=== PATIENT | female | born 1975 | race Caucasian/White ===

== ENCOUNTER 2018-04-14 18:30 | Inpatient (IN) | payer MEDICARE ==
[2018-04-14] MEDS ORDERED: ACETAMINOPHEN 325 MG TAB PO (20:30)
[2018-04-14] MEDS ORDERED: MAGNESIUM HYDROXIDE 30ML CUP PO (20:30)
[2018-04-14] MEDS ORDERED: BISACODYL 10 MG SUPP PR (21:00)
[2018-04-14] MEDS ORDERED: LACTULOSE 30ML CUP PO (21:00)
[2018-04-14 22:20] LABS: ADD UMIC YES; UR ASCORBIC ACID 40 mg/dL (NEGATIVE); UR BILIRUBIN (Dip) NEGATIVE (NEGATIVE); UR BLOOD (Dip) NEGATIVE (NEGATIVE); UR CLARITY CLEAR (CLEAR); UR COLOR YELLOW (YELLOW); UR GLUCOSE (Dip) NEGATIVE (NEGATIVE); UR KETONES (Dip) NEGATIVE (NEGATIVE); UR LEUKOCYTE ESTERASE (Dip) TRACE Leu/ul (NEGATIVE); UR NITRITE (Dip) NEGATIVE (NEGATIVE); UR RBC 8 /HPF (0-5); UR SPECIFIC GRAVITY (Dip) 1.011 (1.003-1.030); UR TOTAL PROTEIN (Dip) NEGATIVE (NEGATIVE); UR UROBILINOGEN (Dip) NEGATIVE (NEGATIVE); UR WBC 2 /HPF (0-5)
[2018-04-14] MEDS: DOCUSATE SODIUM 100 MG CAP PO (22:43)
[2018-04-14] MEDS: SENNA TAB PO (22:44)
[2018-04-15] MEDS: METHOCARBAMOL 750 MG TAB PO ×5 (00:24→23:41)
[2018-04-15] MEDS: ACETAMINOPHEN 325 MG TAB PO ×5 (00:24→23:41)
[2018-04-15] MEDS: ASCORBIC ACID 250 MG TAB PO ×3 (00:25→20:01)
[2018-04-15] MEDS: PANTOPRAZOLE (EC) 40 MG TAB PO (06:28)
[2018-04-15 07:10] LABS: WHITE BLOOD COUNT 11.5 10^3/ul (4.8-10.8)
[2018-04-15 07:10] LABS: ABNORMAL IP MESSAGE 1; HEMOGLOBIN 7.4 g/dl (12.0-16.0); MEAN CORPUSCULAR HEMOGLOBIN 29.7 pg (29.0-33.0); MEAN CORPUSCULAR HGB CONC 32.2 g/dl (32.0-37.0); MEAN CORPUSCULAR VOLUME 92.4 fl (82.0-101.0); MEAN PLATELET VOLUME 11.3 fl (7.4-10.4); NUCLEATED RED BLOOD CELLS% 55.7 /100WBC (0.0-0.0); PLATELET COUNT 297 10^3/UL (140-415); RED BLOOD COUNT 2.49 10^6/ul (4.20-5.40); RED CELL DISTRIBUTION WIDTH 15.6 % (11.5-14.5)
[2018-04-15 07:21] LABS: ADD MAN DIFF? YES; POSITIVE DIFF @See below
[2018-04-15] MEDS: METHADONE 10 MG TAB PO (07:51)
[2018-04-15 07:53] LABS: ALANINE AMINOTRANSFERASE 54 IU/L (13-69); ALBUMIN 3.6 g/dl (3.3-4.9); ALBUMIN/GLOBULIN RATIO 1.09; ALKALINE PHOSPHATASE 261 IU/L (42-121); ANION GAP 11 (8-16); ASPARTATE AMINO TRANSFERASE 55 IU/L (15-46); BILIRUBIN,INDIRECT 0.7 mg/dl (0-1.1); BILIRUBIN,TOTAL 0.7 mg/dl (0.2-1.3); BLOOD UREA NITROGEN 30 mg/dl (7-20); CALCIUM 9.6 mg/dl (8.4-10.2); CARBON DIOXIDE 23 mmol/L (21-31); CHLORIDE 112 mmol/L (97-110); CREATININE 0.96 mg/dl (0.44-1.00); GLUCOSE 90 mg/dl (70-220); POTASSIUM 4.4 mmol/L (3.5-5.1); SODIUM 142 mmol/L (135-144); TOTAL PROTEIN 6.9 g/dl (6.1-8.1)
[2018-04-15] MEDS: CYANOCOBALAMIN 500 MCG TAB PO ×2 (09:00→12:50)
[2018-04-15] MEDS ORDERED: METHADONE (1 MG/ML 5 ML PO UD SYG) PO (09:00)
[2018-04-15 09:14] LABS: BAND NEUTROPHILS #M 0.1 10^3/ul (0.0-0.6); BAND NEUTROPHILS % (M) 1 % (0-4); BASOPHIL #M 0.1 10^3/ul (0.0-0.0); BASOPHILS % (M) 1 % (0-2); BURR CELLS 1+ (0-0); EOSINOPHILS % (M) 12 % (0-7); ERYTHROBLAST% (NRBC) (M) 110 % (0-0); GIANT THROMBO% (M) 2 % (0-0); HYPOCHROMASIA 2+ (0-0); LYMPHOCYTES #M 3.2 10^3/ul (0.8-2.9); LYMPHOCYTES % (M) 28 % (15-51); MONOCYTE #M 0.8 10^3/ul (0.3-0.9); MONOCYTES % (M) 7 % (0-11); PLATELET ESTIMATE NORMAL; REACTIVE LYMPHOCYTES #M 0.1 10^3/ul (0.0-0.0); REACTIVE LYMPHOCYTES% (M) 1 % (0-0); SEG NEUT #M 5.8 10^3/ul (1.6-7.5); SEGMENTED NEUTROPHILS (M) % 50 % (39-77); SMUDGE%M 6 % (0-0); TARGET CELLS 1+ (0-0)
[2018-04-15] MEDS: MUPIROCIN 2% 22 GM OINT TOP (09:47)
[2018-04-15] MEDS: BALSAM PERU/CASTOR OIL 60 GM TUBE TOP ×2 (09:47→20:05)
[2018-04-15] MEDS: DOCUSATE SODIUM 100 MG CAP PO ×2 (09:48→20:01)
[2018-04-15] MEDS: COLCHICINE 0.6 MG TAB PO (09:48)
[2018-04-15] MEDS: LACTOBACILLUS RHAMNOSUS CAP PO (09:48)
[2018-04-15] MEDS: ALLOPURINOL 100 MG TAB PO (09:48)
[2018-04-15] MEDS: MULTIVITAMINS/MINERALS TAB PO (09:48)
[2018-04-15] MEDS: ENOXAPARIN 40 MG/0.4 ML SYG SC (09:49)
[2018-04-15] MEDS: HYDROmorphONE 2 MG TAB PO ×2 (15:01→20:02)
[2018-04-15] MEDS: SENNA TAB PO (20:01)
[2018-04-16] MEDS: PANTOPRAZOLE (EC) 40 MG TAB PO (06:07)
[2018-04-16] MEDS: METHOCARBAMOL 750 MG TAB PO ×3 (06:07→17:37)
[2018-04-16] MEDS: ACETAMINOPHEN 325 MG TAB PO ×3 (06:08→17:38)
[2018-04-16] MEDS: METHADONE 10 MG TAB PO (06:32)
[2018-04-16] MEDS: BALSAM PERU/CASTOR OIL 60 GM TUBE TOP (08:45)
[2018-04-16] MEDS: ENOXAPARIN 40 MG/0.4 ML SYG SC (08:47)
[2018-04-16] MEDS: MUPIROCIN 2% 22 GM OINT TOP (08:47)
[2018-04-16] MEDS: DOCUSATE SODIUM 100 MG CAP PO ×2 (08:47→20:59)
[2018-04-16] MEDS: LACTOBACILLUS RHAMNOSUS CAP PO (08:48)
[2018-04-16] MEDS: ASCORBIC ACID 250 MG TAB PO ×2 (08:48→20:59)
[2018-04-16] MEDS: COLCHICINE 0.6 MG TAB PO (08:48)
[2018-04-16] MEDS: CYANOCOBALAMIN 500 MCG TAB PO (08:48)
[2018-04-16] MEDS: MULTIVITAMINS/MINERALS TAB PO (08:48)
[2018-04-16] MEDS: ALLOPURINOL 100 MG TAB PO (08:49)
[2018-04-16 08:55] LABS: ADD MAN DIFF? NO
[2018-04-16 08:57] LABS: WHITE BLOOD COUNT 13.8 10^3/ul (4.8-10.8)
[2018-04-16 08:57] LABS: ABNORMAL IP MESSAGE 1; BASOPHIL # 0.1 10^3/ul (0.0-0.1); BASOPHILS % 0.6 % (0.0-2.0); EOSINOPHILS # 0.5 10^3/ul (0.0-0.5); EOSINOPHILS % 3.5 % (0.0-7.0); LYMPHOCYTES # 2.9 10^3/ul (0.8-2.9); LYMPHOCYTES % 21.1 % (15.0-51.0); MEAN CORPUSCULAR HEMOGLOBIN 29.7 pg (29.0-33.0); MEAN CORPUSCULAR VOLUME 92.9 fl (82.0-101.0); MONOCYTE # 1.7 10^3/ul (0.3-0.9); MONOCYTES % 12.5 % (0.0-11.0); NEUTROPHIL # 8.6 10^3/ul (1.6-7.5); NEUTROPHILS % 61.9 % (39.0-77.0); NUCLEATED RED BLOOD CELLS # 8.6 10^3/ul (0.0-0.0); NUCLEATED RED BLOOD CELLS% 61.9 /100WBC (0.0-0.0); PLATELET COUNT 340 10^3/UL (140-415); RED BLOOD COUNT 2.69 10^6/ul (4.20-5.40); RED CELL DISTRIBUTION WIDTH 15.4 % (11.5-14.5)
[2018-04-16 08:58] LABS: POSITIVE DIFF @See below
[2018-04-16 09:13] LABS: ANION GAP 18 (8-16); BLOOD UREA NITROGEN 28 mg/dl (7-20); CALCIUM 9.9 mg/dl (8.4-10.2); CARBON DIOXIDE 26 mmol/L (21-31); CHLORIDE 104 mmol/L (97-110); CREATININE 0.98 mg/dl (0.44-1.00); GLUCOSE 87 mg/dl (70-220); IRON 110 ug/dl (35-150); POTASSIUM 4.2 mmol/L (3.5-5.1); SODIUM 144 mmol/L (135-144)
[2018-04-16 09:22] LABS: % IRON SATURATION 43 % SAT (22-52); TOTAL IRON BINDING CAPACITY 253 ug/dl (241-421)
[2018-04-16] MEDS: HYDROmorphONE 2 MG TAB PO ×2 (09:47→13:55)
[2018-04-16 10:08] LABS: FERRITIN > 1000.0 ng/ml (6.2-137.0)
[2018-04-16] MEDS: SENNA TAB PO (20:59)
[2018-04-17] MEDS: METHOCARBAMOL 750 MG TAB PO ×4 (00:14→18:13)
[2018-04-17] MEDS: ACETAMINOPHEN 325 MG TAB PO ×4 (00:15→18:13)
[2018-04-17] MEDS: PANTOPRAZOLE (EC) 40 MG TAB PO (06:02)
[2018-04-17 07:11] LABS: ADD MAN DIFF? NO
[2018-04-17 07:14] LABS: WHITE BLOOD COUNT 12.4 10^3/ul (4.8-10.8)
[2018-04-17 07:14] LABS: ABNORMAL IP MESSAGE 1; BASOPHIL # 0.1 10^3/ul (0.0-0.1); BASOPHILS % 0.6 % (0.0-2.0); EOSINOPHILS # 0.6 10^3/ul (0.0-0.5); EOSINOPHILS % 4.8 % (0.0-7.0); HEMATOCRIT 22.1 % (37.0-47.0); HEMOGLOBIN 7.3 g/dl (12.0-16.0); LYMPHOCYTES # 2.9 10^3/ul (0.8-2.9); LYMPHOCYTES % 23.4 % (15.0-51.0); MEAN CORPUSCULAR VOLUME 90.9 fl (82.0-101.0); MEAN PLATELET VOLUME 10.9 fl (7.4-10.4); MONOCYTE # 2.1 10^3/ul (0.3-0.9); MONOCYTES % 16.7 % (0.0-11.0); NEUTROPHIL # 6.7 10^3/ul (1.6-7.5); NEUTROPHILS % 54.1 % (39.0-77.0); NUCLEATED RED BLOOD CELLS # 9.8 10^3/ul (0.0-0.0); NUCLEATED RED BLOOD CELLS% 79.2 /100WBC (0.0-0.0); PLATELET COUNT 303 10^3/UL (140-415); RED BLOOD COUNT 2.43 10^6/ul (4.20-5.40); RED CELL DISTRIBUTION WIDTH 15.3 % (11.5-14.5)
[2018-04-17 07:21] LABS: POSITIVE DIFF @See below
[2018-04-17] MEDS: METHADONE 10 MG TAB PO (07:36)
[2018-04-17 07:38] LABS: ANION GAP 11 (8-16); BLOOD UREA NITROGEN 27 mg/dl (7-20); CALCIUM 9.5 mg/dl (8.4-10.2); CARBON DIOXIDE 24 mmol/L (21-31); CHLORIDE 110 mmol/L (97-110); CREATININE 0.96 mg/dl (0.44-1.00); GLUCOSE 91 mg/dl (70-220); POTASSIUM 4.3 mmol/L (3.5-5.1); SODIUM 141 mmol/L (135-144)
[2018-04-17 07:56] LABS: PHOSPHORUS 5.2 mg/dl (2.5-4.9)
[2018-04-17] MEDS: MULTIVITAMINS/MINERALS TAB PO (08:57)
[2018-04-17] MEDS: ASCORBIC ACID 250 MG TAB PO ×2 (08:57→20:24)
[2018-04-17] MEDS: COLCHICINE 0.6 MG TAB PO (08:57)
[2018-04-17] MEDS: CYANOCOBALAMIN 500 MCG TAB PO (08:57)
[2018-04-17] MEDS: DOCUSATE SODIUM 100 MG CAP PO ×2 (08:58→20:25)
[2018-04-17] MEDS: LACTOBACILLUS RHAMNOSUS CAP PO (08:58)
[2018-04-17] MEDS: ALLOPURINOL 100 MG TAB PO (08:58)
[2018-04-17] MEDS: HYDROmorphONE 2 MG TAB PO ×2 (08:59→15:29)
[2018-04-17] MEDS: MUPIROCIN 2% 22 GM OINT TOP (09:02)
[2018-04-17] MEDS: ENOXAPARIN 40 MG/0.4 ML SYG SC (09:03)
[2018-04-17] MEDS: SENNA TAB PO (20:25)
[2018-04-18] MEDS: METHOCARBAMOL 750 MG TAB PO ×5 (00:35→23:57)
[2018-04-18] MEDS: ACETAMINOPHEN 325 MG TAB PO ×5 (00:35→23:57)
[2018-04-18] MEDS: PANTOPRAZOLE (EC) 40 MG TAB PO (05:59)
[2018-04-18] MEDS: METHADONE 10 MG TAB PO (06:41)
[2018-04-18 06:54] LABS: ADD MAN DIFF? NO
[2018-04-18 07:00] LABS: ABNORMAL IP MESSAGE 1; BASOPHIL # 0.1 10^3/ul (0.0-0.1); BASOPHILS % 0.7 % (0.0-2.0); EOSINOPHILS # 0.6 10^3/ul (0.0-0.5); EOSINOPHILS % 5.6 % (0.0-7.0); HEMATOCRIT 22.2 % (37.0-47.0); HEMOGLOBIN 7.2 g/dl (12.0-16.0); LYMPHOCYTES # 3.1 10^3/ul (0.8-2.9); LYMPHOCYTES % 28.6 % (15.0-51.0); MEAN CORPUSCULAR HEMOGLOBIN 29.9 pg (29.0-33.0); MEAN CORPUSCULAR HGB CONC 32.4 g/dl (32.0-37.0); MEAN CORPUSCULAR VOLUME 92.1 fl (82.0-101.0); MEAN PLATELET VOLUME 11.2 fl (7.4-10.4); MONOCYTE # 1.6 10^3/ul (0.3-0.9); MONOCYTES % 15.3 % (0.0-11.0); NEUTROPHIL # 5.3 10^3/ul (1.6-7.5); NEUTROPHILS % 49.3 % (39.0-77.0); NUCLEATED RED BLOOD CELLS # 11.8 10^3/ul (0.0-0.0); NUCLEATED RED BLOOD CELLS% 110.6 /100WBC (0.0-0.0); PLATELET COUNT 333 10^3/UL (140-415); RED BLOOD COUNT 2.41 10^6/ul (4.20-5.40); RED CELL DISTRIBUTION WIDTH 15.3 % (11.5-14.5)
[2018-04-18 07:00] LABS: WHITE BLOOD COUNT 10.7 10^3/ul (4.8-10.8)
[2018-04-18 07:01] LABS: POSITIVE DIFF @See below
[2018-04-18] MEDS: ASCORBIC ACID 250 MG TAB PO ×2 (08:26→20:10)
[2018-04-18] MEDS: COLCHICINE 0.6 MG TAB PO (08:26)
[2018-04-18] MEDS: LACTOBACILLUS RHAMNOSUS CAP PO (08:26)
[2018-04-18] MEDS: MULTIVITAMINS/MINERALS TAB PO (08:26)
[2018-04-18] MEDS: DOCUSATE SODIUM 100 MG CAP PO ×2 (08:26→20:10)
[2018-04-18] MEDS: CYANOCOBALAMIN 500 MCG TAB PO (08:26)
[2018-04-18] MEDS: ENOXAPARIN 40 MG/0.4 ML SYG SC (08:27)
[2018-04-18] MEDS: ALLOPURINOL 100 MG TAB PO (08:27)
[2018-04-18] MEDS: HYDROmorphONE 2 MG TAB PO ×3 (08:31→14:51)
[2018-04-18 10:07] LABS: BASOPHIL #M 0.1 10^3/ul (0.0-0.0); BASOPHILS % (M) 1 % (0-2); BURR CELLS 1+ (0-0); EOSINOPHILS % (M) 11 % (0-7); ERYTHROBLAST% (NRBC) (M) 194 % (0-0); GIANT THROMBO% (M) 4 % (0-0); HYPOCHROMASIA 3+ (0-0); LYMPHOCYTES #M 3.8 10^3/ul (0.8-2.9); LYMPHOCYTES % (M) 36 % (15-51); MONOCYTE #M 0.9 10^3/ul (0.3-0.9); MONOCYTES % (M) 9 % (0-11); OVALOCYTES 1+ (0-0); PLATELET ESTIMATE NORMAL; REACTIVE LYMPHOCYTES #M 0.1 10^3/ul (0.0-0.0); REACTIVE LYMPHOCYTES% (M) 1 % (0-0); SEGMENTED NEUTROPHILS (M) % 42 % (39-77); SMUDGE%M 10 % (0-0); SPHEROCYTES 1+ (0-0); TARGET CELLS 1+ (0-0)
[2018-04-18] MEDS: MUPIROCIN 2% 22 GM OINT TOP (11:20)
[2018-04-18] MEDS: SENNA TAB PO (20:10)
[2018-04-19] MEDS: HYDROmorphONE 2 MG TAB PO ×2 (00:36→14:15)
[2018-04-19] MEDS: ACETAMINOPHEN 325 MG TAB PO ×3 (05:50→17:51)
[2018-04-19] MEDS: PANTOPRAZOLE (EC) 40 MG TAB PO (05:50)
[2018-04-19] MEDS: METHOCARBAMOL 750 MG TAB PO ×3 (05:50→17:51)
[2018-04-19] MEDS: METHADONE 10 MG TAB PO ×4 (06:55→09:47)
[2018-04-19] MEDS: LACTOBACILLUS RHAMNOSUS CAP PO (09:36)
[2018-04-19] MEDS: COLCHICINE 0.6 MG TAB PO (09:37)
[2018-04-19] MEDS: MULTIVITAMINS/MINERALS TAB PO (09:37)
[2018-04-19] MEDS: ALLOPURINOL 100 MG TAB PO (09:38)
[2018-04-19] MEDS: MUPIROCIN 2% 22 GM OINT TOP (09:39)
[2018-04-19] MEDS: DOCUSATE SODIUM 100 MG CAP PO ×2 (09:39→20:25)
[2018-04-19] MEDS: ASCORBIC ACID 250 MG TAB PO ×2 (09:39→20:26)
[2018-04-19] MEDS: CYANOCOBALAMIN 500 MCG TAB PO (09:39)
[2018-04-19] MEDS: ENOXAPARIN 40 MG/0.4 ML SYG SC (09:45)
[2018-04-19] MEDS: SENNA TAB PO (20:25)
[2018-04-19] MEDS: EXJADE 500 MG PO (20:54)
[2018-04-20] MEDS: METHOCARBAMOL 750 MG TAB PO ×5 (00:02→23:53)
[2018-04-20] MEDS: ACETAMINOPHEN 325 MG TAB PO ×5 (00:03→23:53)
[2018-04-20] MEDS: PANTOPRAZOLE (EC) 40 MG TAB PO (06:08)
[2018-04-20 06:34] LABS: ADD MAN DIFF? NO
[2018-04-20 06:36] LABS: WHITE BLOOD COUNT 13.1 10^3/ul (4.8-10.8)
[2018-04-20 06:36] LABS: ABNORMAL IP MESSAGE 1; BASOPHIL # 0.1 10^3/ul (0.0-0.1); BASOPHILS % 0.5 % (0.0-2.0); EOSINOPHILS # 0.8 10^3/ul (0.0-0.5); EOSINOPHILS % 5.7 % (0.0-7.0); HEMATOCRIT 21.7 % (37.0-47.0); HEMOGLOBIN 7.1 g/dl (12.0-16.0); LYMPHOCYTES # 3.2 10^3/ul (0.8-2.9); LYMPHOCYTES % 24.7 % (15.0-51.0); MEAN CORPUSCULAR HEMOGLOBIN 30.3 pg (29.0-33.0); MEAN CORPUSCULAR HGB CONC 32.7 g/dl (32.0-37.0); MEAN CORPUSCULAR VOLUME 92.7 fl (82.0-101.0); MEAN PLATELET VOLUME 10.8 fl (7.4-10.4); MONOCYTE # 2.2 10^3/ul (0.3-0.9); MONOCYTES % 16.7 % (0.0-11.0); NEUTROPHIL # 6.8 10^3/ul (1.6-7.5); NEUTROPHILS % 51.8 % (39.0-77.0); NUCLEATED RED BLOOD CELLS% 122.2 /100WBC (0.0-0.0); PLATELET COUNT 368 10^3/UL (140-415); RED BLOOD COUNT 2.34 10^6/ul (4.20-5.40); RED CELL DISTRIBUTION WIDTH 15.5 % (11.5-14.5)
[2018-04-20 06:56] LABS: POSITIVE DIFF @See below
[2018-04-20] MEDS: METHADONE 10 MG TAB PO (07:57)
[2018-04-20 08:01] LABS: ANION GAP 12 (8-16); BLOOD UREA NITROGEN 23 mg/dl (7-20); CALCIUM 9.8 mg/dl (8.4-10.2); CARBON DIOXIDE 23 mmol/L (21-31); CHLORIDE 111 mmol/L (97-110); CREATININE 0.99 mg/dl (0.44-1.00); GLUCOSE 88 mg/dl (70-220); POTASSIUM 4.4 mmol/L (3.5-5.1); SODIUM 142 mmol/L (135-144)
[2018-04-20] MEDS: MUPIROCIN 2% 22 GM OINT TOP (09:00)
[2018-04-20] MEDS: EXJADE 500 MG PO ×2 (09:17→17:46)
[2018-04-20] MEDS: LACTOBACILLUS RHAMNOSUS CAP PO (09:18)
[2018-04-20] MEDS: MULTIVITAMINS/MINERALS TAB PO (09:18)
[2018-04-20] MEDS: COLCHICINE 0.6 MG TAB PO (09:18)
[2018-04-20] MEDS: ASCORBIC ACID 250 MG TAB PO ×2 (09:18→20:34)
[2018-04-20] MEDS: DOCUSATE SODIUM 100 MG CAP PO ×2 (09:18→20:35)
[2018-04-20] MEDS: CYANOCOBALAMIN 500 MCG TAB PO (09:19)
[2018-04-20] MEDS: ALLOPURINOL 100 MG TAB PO (09:19)
[2018-04-20] MEDS: ERGOCALCIFEROL 50,000 UNIT CAP PO (09:25)
[2018-04-20] MEDS: ENOXAPARIN 40 MG/0.4 ML SYG SC (09:25)
[2018-04-20] MEDS: HYDROmorphONE 2 MG TAB PO ×2 (12:36→22:23)
[2018-04-20] MEDS: SENNA TAB PO (20:35)
[2018-04-21] MEDS: ACETAMINOPHEN 325 MG TAB PO ×3 (06:43→18:23)
[2018-04-21] MEDS: METHOCARBAMOL 750 MG TAB PO ×3 (06:43→18:22)
[2018-04-21] MEDS: PANTOPRAZOLE (EC) 40 MG TAB PO (06:44)
[2018-04-21] MEDS: METHADONE 10 MG TAB PO (06:47)
[2018-04-21] MEDS: MULTIVITAMINS/MINERALS TAB PO (09:01)
[2018-04-21] MEDS: LACTOBACILLUS RHAMNOSUS CAP PO (09:01)
[2018-04-21] MEDS: ALLOPURINOL 100 MG TAB PO (09:01)
[2018-04-21] MEDS: ASCORBIC ACID 250 MG TAB PO ×2 (09:01→20:28)
[2018-04-21] MEDS: COLCHICINE 0.6 MG TAB PO (09:01)
[2018-04-21] MEDS: DOCUSATE SODIUM 100 MG CAP PO ×2 (09:01→20:28)
[2018-04-21] MEDS: ENOXAPARIN 40 MG/0.4 ML SYG SC (09:02)
[2018-04-21] MEDS: HYDROmorphONE 2 MG TAB PO ×2 (09:10→13:47)
[2018-04-21] MEDS: EXJADE 500 MG PO ×2 (09:14→18:22)
[2018-04-21] MEDS: MUPIROCIN 2% 22 GM OINT TOP (15:32)
[2018-04-21] MEDS: CYANOCOBALAMIN 500 MCG TAB PO (15:32)
[2018-04-21] MEDS: SENNA TAB PO (20:28)
[2018-04-22] MEDS: METHOCARBAMOL 750 MG TAB PO ×4 (00:28→17:24)
[2018-04-22] MEDS: ACETAMINOPHEN 325 MG TAB PO ×4 (00:28→17:25)
[2018-04-22] MEDS: PANTOPRAZOLE (EC) 40 MG TAB PO (06:38)
[2018-04-22] MEDS: METHADONE 10 MG TAB PO (07:01)
[2018-04-22 08:20] LABS: ADD MAN DIFF? NO
[2018-04-22 08:24] LABS: ABNORMAL IP MESSAGE 1; BASOPHIL # 0.1 10^3/ul (0.0-0.1); BASOPHILS % 0.5 % (0.0-2.0); EOSINOPHILS # 0.8 10^3/ul (0.0-0.5); EOSINOPHILS % 4.7 % (0.0-7.0); HEMATOCRIT 22.5 % (37.0-47.0); HEMOGLOBIN 7.3 g/dl (12.0-16.0); LYMPHOCYTES # 2.4 10^3/ul (0.8-2.9); LYMPHOCYTES % 14.1 % (15.0-51.0); MEAN CORPUSCULAR HGB CONC 32.4 g/dl (32.0-37.0); MEAN CORPUSCULAR VOLUME 92.6 fl (82.0-101.0); MEAN PLATELET VOLUME 10.7 fl (7.4-10.4); MONOCYTE # 2.3 10^3/ul (0.3-0.9); MONOCYTES % 13.2 % (0.0-11.0); NEUTROPHIL # 11.3 10^3/ul (1.6-7.5); NEUTROPHILS % 66.4 % (39.0-77.0); NUCLEATED RED BLOOD CELLS% 152.7 /100WBC (0.0-0.0); PLATELET COUNT 408 10^3/UL (140-415); RED BLOOD COUNT 2.43 10^6/ul (4.20-5.40); RED CELL DISTRIBUTION WIDTH 15.8 % (11.5-14.5)
[2018-04-22] MEDS: EXJADE 500 MG PO ×2 (08:33→17:25)
[2018-04-22 08:47] LABS: POSITIVE DIFF @See below
[2018-04-22] MEDS: ENOXAPARIN 40 MG/0.4 ML SYG SC (09:00)
[2018-04-22] MEDS: DOCUSATE SODIUM 100 MG CAP PO ×2 (09:00→21:03)
[2018-04-22 09:41] LABS: ANISOCYTOSIS 1+ (0-0); EOSINOPHILS % (M) 3 % (0-7); ERYTHROBLAST% (NRBC) (M) 150 % (0-0); GIANT THROMBO% (M) 2 % (0-0); LYMPHOCYTES #M 5.4 10^3/ul (0.8-2.9); LYMPHOCYTES % (M) 32 % (15-51); MONOCYTE #M 1.7 10^3/ul (0.3-0.9); MONOCYTES % (M) 10 % (0-11); PLATELET ESTIMATE NORMAL; SEGMENTED NEUTROPHILS (M) % 55 % (39-77); SMUDGE%M 29 % (0-0)
[2018-04-22] MEDS: COLCHICINE 0.6 MG TAB PO (12:07)
[2018-04-22] MEDS: ALLOPURINOL 100 MG TAB PO (12:08)
[2018-04-22] MEDS: LACTOBACILLUS RHAMNOSUS CAP PO (12:08)
[2018-04-22] MEDS: CYANOCOBALAMIN 500 MCG TAB PO (12:09)
[2018-04-22] MEDS: ASCORBIC ACID 250 MG TAB PO ×2 (12:09→21:03)
[2018-04-22] MEDS: MULTIVITAMINS/MINERALS TAB PO (12:09)
[2018-04-22] MEDS: MUPIROCIN 2% 22 GM OINT TOP (12:11)
[2018-04-22] MEDS: HYDROmorphONE 2 MG TAB PO (14:21)
[2018-04-22] MEDS: SENNA TAB PO (21:03)
[2018-04-23] MEDS: METHOCARBAMOL 750 MG TAB PO ×4 (00:15→18:10)
[2018-04-23] MEDS: ACETAMINOPHEN 325 MG TAB PO ×4 (00:16→18:10)
[2018-04-23] MEDS: PANTOPRAZOLE (EC) 40 MG TAB PO (05:27)
[2018-04-23 07:07] LABS: WHITE BLOOD COUNT 17.9 10^3/ul (4.8-10.8)
[2018-04-23 07:07] LABS: ABNORMAL IP MESSAGE 1; HEMATOCRIT 20.4 % (37.0-47.0); MEAN CORPUSCULAR HGB CONC 32.8 g/dl (32.0-37.0); MEAN CORPUSCULAR VOLUME 91.5 fl (82.0-101.0); MEAN PLATELET VOLUME 10.9 fl (7.4-10.4); NUCLEATED RED BLOOD CELLS% 158.5 /100WBC (0.0-0.0); PLATELET COUNT 398 10^3/UL (140-415); RED BLOOD COUNT 2.23 10^6/ul (4.20-5.40); RED CELL DISTRIBUTION WIDTH 15.9 % (11.5-14.5)
[2018-04-23] MEDS: METHADONE 10 MG TAB PO (07:15)
[2018-04-23 07:26] LABS: HEMOGLOBIN 6.7 g/dl (12.0-16.0)
[2018-04-23 07:31] LABS: ANION GAP 13 (8-16); BLOOD UREA NITROGEN 22 mg/dl (7-20); CALCIUM 9.4 mg/dl (8.4-10.2); CARBON DIOXIDE 23 mmol/L (21-31); CHLORIDE 110 mmol/L (97-110); CREATININE 0.95 mg/dl (0.44-1.00); GLUCOSE 96 mg/dl (70-220); MAGNESIUM 1.7 mg/dl (1.7-2.5); PHOSPHORUS 4.7 mg/dl (2.5-4.9); POTASSIUM 4.4 mmol/L (3.5-5.1); SODIUM 142 mmol/L (135-144)
[2018-04-23] MEDS: ASCORBIC ACID 250 MG TAB PO ×2 (08:48→21:35)
[2018-04-23] MEDS: CYANOCOBALAMIN 500 MCG TAB PO (08:48)
[2018-04-23] MEDS: COLCHICINE 0.6 MG TAB PO (08:48)
[2018-04-23] MEDS: MUPIROCIN 2% 22 GM OINT TOP (08:49)
[2018-04-23] MEDS: MULTIVITAMINS/MINERALS TAB PO (08:49)
[2018-04-23] MEDS: DOCUSATE SODIUM 100 MG CAP PO ×2 (08:49→21:00)
[2018-04-23] MEDS: LACTOBACILLUS RHAMNOSUS CAP PO (08:49)
[2018-04-23] MEDS: EXJADE 500 MG PO ×2 (08:49→18:10)
[2018-04-23] MEDS: ALLOPURINOL 100 MG TAB PO (08:49)
[2018-04-23] MEDS: ENOXAPARIN 40 MG/0.4 ML SYG SC (08:51)
[2018-04-23 09:57] LABS: ADD MAN DIFF? YES
[2018-04-23 10:05] LABS: EOSINOPHILS # 1.1 10^3/ul (0.0-0.5); EOSINOPHILS % (M) 6 % (0.0-7.0); ERYTHROBLAST% (NRBC) (M) 202 % (0-0); LYMPHOCYTES # 4.5 10^3/ul (0.8-2.9); LYMPHOCYTES #M 4.4 10^3/ul (0.8-2.9); LYMPHOCYTES % (M) 25 % (15-51); MONOCYTE # 1.6 10^3/ul (0.3-0.9); MONOCYTE #M 1.6 10^3/ul (0.3-0.9); MONOCYTES % (M) 9 % (0-11); MYELOCYTES #M 0.1 10^3/ul (0.0-0.0); MYELOCYTES % (M) 1 % (0-0); SEGMENTED NEUTROPHILS (M) % 59 % (39-77)
[2018-04-23 10:09] LABS: TARGET CELLS OCCASIONAL (0-0)
[2018-04-23 10:10] LABS: POLYCHROMASIA 1+ (0-0)
[2018-04-23 10:12] LABS: BURR CELLS OCCASIONAL
[2018-04-23] MEDS: HYDROmorphONE 2 MG TAB PO (11:33)
[2018-04-23] MEDS: DIPHENHYDRAMINE 25 MG CAP PO (13:55)
[2018-04-23 14:28] LABS: IMMEDIATE SPIN CROSSMATCH 1 1
[2018-04-23] MEDS: SENNA TAB PO (21:00)
[2018-04-24] MEDS: METHOCARBAMOL 750 MG TAB PO ×4 (00:37→16:40)
[2018-04-24] MEDS: ACETAMINOPHEN 325 MG TAB PO ×4 (00:38→16:40)
[2018-04-24] MEDS: PANTOPRAZOLE (EC) 40 MG TAB PO (06:36)
[2018-04-24] MEDS: METHADONE 10 MG TAB PO (06:44)
[2018-04-24] MEDS: EXJADE 500 MG PO ×2 (08:20→16:42)
[2018-04-24] MEDS: CYANOCOBALAMIN 500 MCG TAB PO (08:20)
[2018-04-24] MEDS: COLCHICINE 0.6 MG TAB PO (08:20)
[2018-04-24] MEDS: MULTIVITAMINS/MINERALS TAB PO (08:20)
[2018-04-24] MEDS: DOCUSATE SODIUM 100 MG CAP PO ×2 (08:20→20:49)
[2018-04-24] MEDS: LACTOBACILLUS RHAMNOSUS CAP PO (08:20)
[2018-04-24] MEDS: ALLOPURINOL 100 MG TAB PO (08:23)
[2018-04-24] MEDS: ENOXAPARIN 40 MG/0.4 ML SYG SC (08:23)
[2018-04-24] MEDS: MUPIROCIN 2% 22 GM OINT TOP (08:23)
[2018-04-24] MEDS: ASCORBIC ACID 250 MG TAB PO ×2 (09:29→20:49)
[2018-04-24] MEDS: HYDROmorphONE 2 MG TAB PO (16:39)
[2018-04-24] MEDS: SENNA TAB PO (20:49)
[2018-04-25] MEDS: ACETAMINOPHEN 325 MG TAB PO ×5 (00:34→23:43)
[2018-04-25] MEDS: METHOCARBAMOL 750 MG TAB PO ×5 (00:34→23:42)
[2018-04-25 06:35] LABS: WHITE BLOOD COUNT 14.4 10^3/ul (4.8-10.8)
[2018-04-25 06:35] LABS: ABNORMAL IP MESSAGE 1; HEMATOCRIT 25.8 % (37.0-47.0); HEMOGLOBIN 8.4 g/dl (12.0-16.0); MEAN CORPUSCULAR HGB CONC 32.6 g/dl (32.0-37.0); MEAN CORPUSCULAR VOLUME 92.1 fl (82.0-101.0); MEAN PLATELET VOLUME 10.6 fl (7.4-10.4); NUCLEATED RED BLOOD CELLS% 182.7 /100WBC (0.0-0.0); PLATELET COUNT 414 10^3/UL (140-415); RED CELL DISTRIBUTION WIDTH 15.8 % (11.5-14.5)
[2018-04-25 06:36] LABS: POSITIVE DIFF @See below
[2018-04-25 06:37] LABS: ADD MAN DIFF? YES
[2018-04-25 06:55] LABS: ANION GAP 13 (8-16); BLOOD UREA NITROGEN 23 mg/dl (7-20); CALCIUM 9.7 mg/dl (8.4-10.2); CARBON DIOXIDE 25 mmol/L (21-31); CHLORIDE 110 mmol/L (97-110); CREATININE 0.89 mg/dl (0.44-1.00); GLUCOSE 92 mg/dl (70-220); POTASSIUM 4.7 mmol/L (3.5-5.1); SODIUM 143 mmol/L (135-144)
[2018-04-25] MEDS: PANTOPRAZOLE (EC) 40 MG TAB PO (06:55)
[2018-04-25] MEDS: METHADONE 10 MG TAB PO (06:57)
[2018-04-25] MEDS: ASCORBIC ACID 250 MG TAB PO ×2 (08:23→20:21)
[2018-04-25] MEDS: LACTOBACILLUS RHAMNOSUS CAP PO (08:23)
[2018-04-25] MEDS: DOCUSATE SODIUM 100 MG CAP PO ×2 (08:23→20:22)
[2018-04-25] MEDS: MULTIVITAMINS/MINERALS TAB PO (08:23)
[2018-04-25] MEDS: COLCHICINE 0.6 MG TAB PO (08:23)
[2018-04-25] MEDS: CYANOCOBALAMIN 500 MCG TAB PO (08:23)
[2018-04-25] MEDS: ALLOPURINOL 100 MG TAB PO (08:23)
[2018-04-25] MEDS: EXJADE 500 MG PO ×2 (08:24→17:15)
[2018-04-25] MEDS: ENOXAPARIN 40 MG/0.4 ML SYG SC (08:28)
[2018-04-25] MEDS: MUPIROCIN 2% 22 GM OINT TOP (08:28)
[2018-04-25 10:13] LABS: ANISOCYTOSIS 1+ (0-0)
[2018-04-25] MEDS: HYDROmorphONE 2 MG TAB PO (14:36)
[2018-04-25] MEDS: SENNA TAB PO (20:22)
[2018-04-26 06:46] LABS: WHITE BLOOD COUNT 13.8 10^3/ul (4.8-10.8)
[2018-04-26 06:46] LABS: ABNORMAL IP MESSAGE 1; HEMATOCRIT 25.8 % (37.0-47.0); HEMOGLOBIN 8.4 g/dl (12.0-16.0); MEAN CORPUSCULAR HEMOGLOBIN 30.1 pg (29.0-33.0); MEAN CORPUSCULAR HGB CONC 32.6 g/dl (32.0-37.0); MEAN CORPUSCULAR VOLUME 92.5 fl (82.0-101.0); MEAN PLATELET VOLUME 10.7 fl (7.4-10.4); NUCLEATED RED BLOOD CELLS% 178.2 /100WBC (0.0-0.0); PLATELET COUNT 424 10^3/UL (140-415); RED BLOOD COUNT 2.79 10^6/ul (4.20-5.40); RED CELL DISTRIBUTION WIDTH 16.1 % (11.5-14.5)
[2018-04-26 06:48] LABS: POSITIVE DIFF @See below
[2018-04-26 06:49] LABS: ADD MAN DIFF? YES
[2018-04-26] MEDS: METHOCARBAMOL 750 MG TAB PO ×4 (06:50→23:48)
[2018-04-26] MEDS: PANTOPRAZOLE (EC) 40 MG TAB PO (06:50)
[2018-04-26] MEDS: ACETAMINOPHEN 325 MG TAB PO ×4 (06:50→23:49)
[2018-04-26] MEDS: METHADONE 10 MG TAB PO (06:51)
[2018-04-26] MEDS: CYANOCOBALAMIN 500 MCG TAB PO (09:00)
[2018-04-26 09:22] LABS: EOSINOPHILS % (M) 6 % (0.0-7.0); LYMPHOCYTES #M 3.4 10^3/ul (0.8-2.9); LYMPHOCYTES % (M) 25 % (15-51); MONOCYTE #M 0.5 10^3/ul (0.3-0.9); MONOCYTES % (M) 4 % (0-11); SEGMENTED NEUTROPHILS (M) % 62 % (39-77)
[2018-04-26 09:23] LABS: ANISOCYTOSIS 1+ (0-0); HYPOCHROMASIA 1+ (0-0); TARGET CELLS 1+ (0-0)
[2018-04-26 10:19] LABS: OCCULT BLOOD STOOL NEGATIVE (NEGATIVE)
[2018-04-26] MEDS: EXJADE 500 MG PO ×2 (10:51→17:53)
[2018-04-26] MEDS: ASCORBIC ACID 250 MG TAB PO ×2 (10:52→22:03)
[2018-04-26] MEDS: DOCUSATE SODIUM 100 MG CAP PO ×2 (10:52→22:00)
[2018-04-26] MEDS: ENOXAPARIN 40 MG/0.4 ML SYG SC (10:53)
[2018-04-26] MEDS: ALLOPURINOL 100 MG TAB PO (10:53)
[2018-04-26] MEDS: MUPIROCIN 2% 22 GM OINT TOP (10:54)
[2018-04-26] MEDS: COLCHICINE 0.6 MG TAB PO (10:55)
[2018-04-26] MEDS: LACTOBACILLUS RHAMNOSUS CAP PO (10:55)
[2018-04-26] MEDS: MULTIVITAMINS/MINERALS TAB PO (11:07)
[2018-04-26] MEDS: HYDROmorphONE 2 MG TAB PO (14:59)
[2018-04-26] MEDS: SENNA TAB PO (22:00)
[2018-04-27] MEDS: METHOCARBAMOL 750 MG TAB PO ×2 (06:05→12:39)
[2018-04-27] MEDS: PANTOPRAZOLE (EC) 40 MG TAB PO (06:05)
[2018-04-27] MEDS: ACETAMINOPHEN 325 MG TAB PO ×2 (06:06→12:38)
[2018-04-27] MEDS: METHADONE 10 MG TAB PO (07:15)
[2018-04-27] MEDS: EXJADE 500 MG PO (07:16)
[2018-04-27] MEDS: MULTIVITAMINS/MINERALS TAB PO (09:31)
[2018-04-27] MEDS: ALLOPURINOL 100 MG TAB PO (09:31)
[2018-04-27] MEDS: DOCUSATE SODIUM 100 MG CAP PO (09:31)
[2018-04-27] MEDS: COLCHICINE 0.6 MG TAB PO (09:31)
[2018-04-27] MEDS: ASCORBIC ACID 250 MG TAB PO (09:31)
[2018-04-27] MEDS: LACTOBACILLUS RHAMNOSUS CAP PO (09:31)
[2018-04-27] MEDS: MUPIROCIN 2% 22 GM OINT TOP (09:32)
[2018-04-27] MEDS: ENOXAPARIN 40 MG/0.4 ML SYG SC (09:32)
[2018-04-27] MEDS: ERGOCALCIFEROL 50,000 UNIT CAP PO (12:39)
[2018-04-27] MEDS: CYANOCOBALAMIN 500 MCG TAB PO (12:39)
== END 2018-04-27 16:30 | disposition home health service (06) | DRG 546 ==
LOC: VRC 04-19 10:53
PROC: F07Z9FZ Gait Training/Functional Ambulation Treatment using Assistive, Adaptive, Supportive or Protective Equipment (ICD-10-PCS; principal; 2018-04-14)
PROC: F07Z8FZ Transfer Training Treatment using Assistive, Adaptive, Supportive or Protective Equipment (ICD-10-PCS; 2018-04-14)
PROC: F07Z5FZ Bed Mobility Treatment using Assistive, Adaptive, Supportive or Protective Equipment (ICD-10-PCS; 2018-04-14)
PROC: F08Z2FZ Grooming/Personal Hygiene Treatment using Assistive, Adaptive, Supportive or Protective Equipment (ICD-10-PCS; 2018-04-14)
PROC: F08Z0FZ Bathing/Showering Techniques Treatment using Assistive, Adaptive, Supportive or Protective Equipment (ICD-10-PCS; 2018-04-14)
PROC: F08Z1FZ Dressing Techniques Treatment using Assistive, Adaptive, Supportive or Protective Equipment (ICD-10-PCS; 2018-04-14)
PROC: 30233N1 Transfusion of Nonautologous Red Blood Cells into Peripheral Vein, Percutaneous Approach (ICD-10-PCS; 2018-04-23)
DX: M06.9 Rheumatoid arthritis, unspecified (principal); L97.929 Non-pressure chronic ulcer of unspecified part of left lower leg with unspecified severity; L97.919 Non-pressure chronic ulcer of unspecified part of right lower leg with unspecified severity; R65.10 Systemic inflammatory response syndrome (SIRS) of non-infectious origin without acute organ dysfunction; M10.9 Gout, unspecified; N18.9 Chronic kidney disease, unspecified; H50.10 Unspecified exotropia; I12.9 Hypertensive chronic kidney disease with stage 1 through stage 4 chronic kidney disease, or unspecified chronic kidney disease; D64.4 Congenital dyserythropoietic anemia; K21.9 Gastro-esophageal reflux disease without esophagitis; G89.4 Chronic pain syndrome; I95.1 Orthostatic hypotension; Z74.09 Other reduced mobility; E83.111 Hemochromatosis due to repeated red blood cell transfusions; Z98.890 Other specified postprocedural states; K59.00 Constipation, unspecified; F06.31 Mood disorder due to known physiological condition with depressive features; F09 Unspecified mental disorder due to known physiological condition; Z90.81 Acquired absence of spleen
CPT/HCPCS: 36430; 80048; 80053; 81001; 82270; 82728; 83540; 83735; 84100; 85025; 86644; 86850; 86900; 86901; 86920; 87081; 87086; 97110; 97112; 97116; 97150; 97163; 97167; 97530; 97535; 97542